=== PATIENT | female | born 1995 | race African-American/Black ===

== ENCOUNTER 2017-01-13 15:24 | Emergency (ER) | payer MEDICAID ==
[~2017-01-13] VITALS: Ht 157.5 cm; Wt 61.0 kg
[~2017-01-13 15:24] MED LIST: PRENATAL
[2017-01-13] MEDS ORDERED: KETOROLAC 60MG/2ML VIAL IM ONE (18:15)
[2017-01-13 18:45] VITALS: BP 124/67
== END 2017-01-13 18:59 | disposition home or self-care (01) ==
LOC: ER 15:24
DX: S39.012A Strain of muscle, fascia and tendon of lower back, initial encounter (principal); Z98.890 Other specified postprocedural states; V43.52XA Car driver injured in collision with other type car in traffic accident, initial encounter; Y93.89 Activity, other specified; Y92.488 Other paved roadways as the place of occurrence of the external cause
CPT/HCPCS: 96372; 99283; J1885

== ENCOUNTER 2024-10-12 10:50 | Emergency (ER) | payer OTHER, MEDICAID ==
[~2024-10-12] VITALS: Ht 157.5 cm; Wt 65.0 kg
[2024-10-12 11:02] VITALS: TEMP 36.9; O2SAT 100
[2024-10-12 11:30] LABS: HCG SCREEN NEGATIVE
[2024-10-12 11:32] LABS: BASOPHILS % 0.5 % (0.0-2.0); EOSINOPHILS % 0.6 % (0.0-5.0); HEMATOCRIT. 37.3 % (36.0-48.0); HEMOGLOBIN. 12.4 g/dL (12.0-16.0); LYMPHOCYTES % 27.3 % (20.0-50.0); MEAN CORPUSCULAR HEMOGLOBIN 27.1 pg (28.0-32.0); MEAN CORPUSCULAR HGB CONC 33.2 g/dL (31.0-37.0); MEAN CORPUSCULAR VOLUME 81.7 fL (81.0-99.0); MEAN PLATELET VOLUME 9.5 fl (7.4-10.4); MONOCYTES % 9.2 % (2.0-8.0); NEUTROPHILS % 62.4 % (40.0-76.0); PLATELET 202 x1000/uL (130-400); RED BLOOD CELL COUNT 4.56 mill/uL (4.2-5.4); RED CELL DISTRIBUTION WIDTH 14.5 % (11.6-14.6); WHITE BLOOD COUNT 6.8 x1000/uL (4.5-11.0)
[2024-10-12 11:37] LABS: CHLORIDE 108 mEq/L (98-107); SODIUM 141 mEq/L (136-145)
[2024-10-12 11:38] LABS: CALCIUM 8.9 mg/dL (8.7-10.4); CARBON DIOXIDE 28 mEq/L (21-32)
[2024-10-12 11:41] LABS: CLARITY URINE CLOUDY (CLEAR); COLOR URINE YELLOW (YELLOW); GLUCOSE URINE NEGATIVE (NEGATIVE); KETONES URINE NEGATIVE (NEGATIVE); LEUKOCYTE ESTERASE URINE NEGATIVE (NEGATIVE); NITRITE URINE NEGATIVE (NEGATIVE); OCCULT BLOOD URINE NEGATIVE (NEGATIVE); PH URINE 5.5 (4.5-8.0); PROTEIN URINE NEGATIVE (NEGATIVE); SPECIFIC GRAVITY URINE 1.013 (1.005-1.030); UROBILINOGEN URINE 0.2 E.U./dL (0.2-1.0)
[2024-10-12 11:43] LABS: CREATININE 0.8 mg/dL (0.6-1.0); GLUCOSE 87 mg/dL (70-105); UREA NITROGEN BLOOD 11 mg/dL (9-23)
[2024-10-12 11:47] LABS: ALANINE AMINOTRANSFERASE 10 IU/L (10-49); ALBUMIN 4.1 g/dL (3.2-4.8); ASPARTATE AMINOTRANSFERASE 17 IU/L (<34); BILIRUBIN DIRECT 0.1 mg/dL (<=3.0)
[2024-10-12 11:48] LABS: BILIRUBIN TOTAL 0.5 mg/dL (0.1-1.0); PROTEIN TOTAL 7.5 g/dL (6.0-8.3)
[2024-10-12] MEDS: MAGNESIUM/ALUMINUM HYDROXIDE/SIMETHICONE 30ML UDC PO ONE (12:11)
[2024-10-12] MEDS: HYDROCODONE/ACETAMINOPHEN 5/325MG TABLET PO ONE (12:12)
[2024-10-12] MEDS: ONDANSETRON 4MG ODT PO ONE (12:12)
[2024-10-12 12:14] LABS: BACTERIA URINE RARE; RBC URINE 0-2 /hpf (0-2); SQUAMOUS EPITHELIAL CELL URINE FEW /lpf (RARE/1+); WBC URINE 0-2 /hpf (0-2); YEAST URINE NONE SEEN
[2024-10-12] MEDS: IOHEXOL-300 100 ML BOTTLE ONE (16:22)
[2024-10-12] MEDS ORDERED: NAPR-679 MT (17:44)
[2024-10-12] MEDS ORDERED: TOPUD MT (17:44)
[2024-10-12] MEDS ORDERED: LIDO700A15 TP (17:44)
[2024-10-12] MEDS: KETOROLAC 30MG/ML VIAL IM ONE (18:13)
[2024-10-12 18:15] VITALS: BP 134/85; PULSE 88; RESP 23; O2SAT 96
[2024-10-12] MEDS ORDERED: IOHEXOL-300 100 ML BOTTLE ONE (23:07)
== END 2024-10-12 18:16 | disposition home or self-care (01) ==
LOC: ER 11:05
DX: R10.11 Right upper quadrant pain (principal); Z79.899 Other long term (current) drug therapy; Z79.1 Long term (current) use of non-steroidal anti-inflammatories (NSAID); Z98.890 Other specified postprocedural states
CPT/HCPCS: 80076; 80048; 81003; 81025; 84703; 85025; 36415; 74177; 76705; 96372; 99285; Q9967; Q0162; J1885; Z7610 ×2